=== PATIENT | female | born 1945 | race Caucasian/White ===

== ENCOUNTER 2017-05-14 14:12 | Outpatient (CLI) | payer MEDICARE, BC ==
--- NOTE | 2017-05-14 18:41 | MRI ---
MRI OF THE LEFT KNEE WITHOUT CONTRAST 05/14/17 INDICATION: Left knee pain. COMPARISON: Prior exam dated 06/12/16. FINDINGS: There is a nondepressed, nondisplaced comminuted fracture involving the anterior to mid aspect of the lateral tibial plateau. The lateral meniscus is intact. The diffuse chondrosis involving the medial femorotibial joint compartment is similar. There is blunting of the body and posterior corner of the medial meniscus likely related to partial meniscectomy. There is some residual areas of increased T2 signal seen involving the undersurface of the truncated body and posterior horn of the medial menisc us which may be related to postoperative scar versus recurrent tear. The ACL, PCL, LCLC and extensor mechanism is intact. There is a moderate sized Potter's cyst. A small amount of fluid overlying the madrigal perficial aspect of the medial gastrocnemius which may reflect sequela of partial rupture. IMPRESSION: 1. Nondepressed, nondisplaced lateral tibial plateau fracture. 2. Interval partial medial meniscectomy with some residual linear regions of increased T2 signal within the meniscus which may reflect scar versus recurrent tear. 3. 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 POS: [facility]
== END 2017-05-14 14:13 | disposition home or self-care (01) ==
LOC: SCSMRI 14:12
PROVIDERS: ATTEND Orthopaedic Surgery
DX: M25.562 Pain in left knee (principal); S82.145A Nondisplaced bicondylar fracture of left tibia, initial encounter for closed fracture; M17.12 Unilateral primary osteoarthritis, left knee

== ENCOUNTER 2019-03-16 12:22 | Outpatient (CLI) | payer MEDICARE, BC ==
[2019-03-16] MEDS ORDERED: ISOVUE-370 76%-LOCM 1 ML ONE (12:34)
--- NOTE | 2019-03-16 13:39 | CT ---
CT NECK SOFT TISSUES, WITH CONTRAST: CLINICAL INDICATION: Right neck swelling. COMPARISON: No prior comparison imaging. FINDINGS: Aerodigestive tract:Mild prominence of the lingual tonsil, greater on the right. No significant mass effect upon the aerodigestive tract. Parotid gland: No intrinsic mass, or inflammation. Submandibular glands:No intrinsic mass, or inflammation. Soft tissue mass:No focal mass is seen at the site of palpable concern of the right neck. There is an underlying traversing cutaneous vein and minimal surrounding edema of the subcutaneous fat. Lymph nodes: No pathologic enlargement of regional lymph nodes. Thyroid gland:Unremarkable. Incidental findings:Linear density of the left upper lung zone which may relate to subsegmental atele ctasis. There is pulmonary emphysema. IMPRESSION: 1. Minimal edema at the subcutaneous tissues of the site of concern without evidence of a focal mass. No drainable fluid collection. 2. Mild prominence of lingual tonsil, greater to the right of midline. Correlate clinically. Transcribed Date/Time: 03/16/2019 2:15 PM
== END 2019-03-16 12:23 | disposition home or self-care (01) ==
LOC: BICCT 12:22
PROVIDERS: ATTEND Surgery
DX: R22.2 Localized swelling, mass and lump, trunk (principal); R60.0 Localized edema
CPT/HCPCS: 36415; 70491; 80053; 80061; 82306; 85025; Q9966

== ENCOUNTER 2020-08-16 10:04 | Outpatient (CLI) | payer MEDICARE, BC ==
--- NOTE | 2020-08-16 10:27 | RAD ---
PA AND LATERAL CHEST: HISTORY: Dyspnea. COMPARISON: 04/29/2020 exam. FINDINGS: Heart size is within normal limits. Postop sternotomy changes are seen. The lungs appear clear of a ny infiltrative process. Arthritic changes of the spine are noted. IMPRESSION: No active intrathoracic disease. Stable chest. POS: [facility]
== END 2020-08-16 10:05 | disposition home or self-care (01) ==
LOC: BICRAD 10:04
PROVIDERS: ATTEND Internal Medicine Critical Care Medicine
DX: R06.00 Dyspnea, unspecified (principal)
CPT/HCPCS: 71046

== ENCOUNTER 2021-01-24 15:07 | Outpatient (CLI) | payer MEDICARE, BC | END 2021-01-24 15:08 | disposition home or self-care (01) | LOC: BICRAD 15:07 | PROVIDERS: ATTEND Physician Assistant | DX: M54.5 Low back pain (principal); M54.6 Pain in thoracic spine; M46.1 Sacroiliitis, not elsewhere classified; M47.814 Spondylosis without myelopathy or radiculopathy, thoracic region; M47.816 Spondylosis without myelopathy or radiculopathy, lumbar region | CPT/HCPCS: 72072; 72100 ==

== ENCOUNTER 2021-01-25 10:43 | Outpatient (CLI) | payer MEDICARE, BC | END 2021-01-25 10:44 | disposition home or self-care (01) | LOC: BICMRI 10:43 | PROVIDERS: ATTEND Internal Medicine Rheumatology | DX: M46.1 Sacroiliitis, not elsewhere classified (principal); M54.5 Low back pain; M47.818 Spondylosis without myelopathy or radiculopathy, sacral and sacrococcygeal region; M47.816 Spondylosis without myelopathy or radiculopathy, lumbar region; M71.38 Other bursal cyst, other site; Z87.81 Personal history of (healed) traumatic fracture | CPT/HCPCS: 72195 ==

== ENCOUNTER 2022-12-21 16:58 | Outpatient (CLI) | payer MEDICARE, BC | END 2022-12-21 16:59 | disposition home or self-care (01) | LOC: SCSRAD 16:58 | DX: M79.672 Pain in left foot (principal) ==

== ENCOUNTER 2023-01-14 08:01 | Outpatient (CLI) | payer MEDICARE, BC | END 2023-01-14 08:02 | disposition home or self-care (01) | LOC: SCSMRI 08:01 | PROVIDERS: ATTEND Neurological Surgery | DX: M79.672 Pain in left foot (principal); M43.16 Spondylolisthesis, lumbar region; R29.818 Other symptoms and signs involving the nervous system; M21.072 Valgus deformity, not elsewhere classified, left ankle; M25.872 Other specified joint disorders, left ankle and foot ==

== ENCOUNTER 2023-07-10 14:50 | Outpatient (CLI) | payer MEDICARE, BC | END 2023-07-10 14:51 | disposition home or self-care (01) | LOC: SCSMRI 14:50 | PROVIDERS: ATTEND Internal Medicine | DX: R51.9 Headache, unspecified (principal); I67.89 Other cerebrovascular disease; R90.82 White matter disease, unspecified | CPT/HCPCS: 70551 ==

== ENCOUNTER 2023-08-27 | Inpatient (IN) | payer MEDICARE, BC | END 2023-08-31 14:53 | disposition home or self-care (01) | DRG 982 | PROVIDERS: ADMIT Internal Medicine | PROC: 0LB70ZZ Excision of Right Hand Tendon, Open Approach (ICD-10-PCS; principal; 2023-08-28) | PROC: 3E033XZ Introduction of Vasopressor into Peripheral Vein, Percutaneous Approach (ICD-10-PCS; 2023-08-31) | DX: L03.113 Cellulitis of right upper limb (principal); K57.92 Diverticulitis of intestine, part unspecified, without perforation or abscess without bleeding; N17.9 Acute kidney failure, unspecified; N18.30 Chronic kidney disease, stage 3 unspecified; I25.10 Atherosclerotic heart disease of native coronary artery without angina pectoris; I12.9 Hypertensive chronic kidney disease with stage 1 through stage 4 chronic kidney disease, or unspecified chronic kidney disease; J44.9 Chronic obstructive pulmonary disease, unspecified; E78.5 Hyperlipidemia, unspecified; W55.01XA Bitten by cat, initial encounter; Z88.2 Allergy status to sulfonamides; Z88.5 Allergy status to narcotic agent; Z95.1 Presence of aortocoronary bypass graft; Z90.710 Acquired absence of both cervix and uterus; Z79.899 Other long term (current) drug therapy ==

== ENCOUNTER 2024-08-10 14:00 | Outpatient (CLI) | payer MEDICARE, BC | END 2024-08-10 14:01 | disposition home or self-care (01) | LOC: BICCT 14:00 | PROVIDERS: ATTEND Neurological Surgery | DX: Z47.89 Encounter for other orthopedic aftercare (principal); M48.061 Spinal stenosis, lumbar region without neurogenic claudication; M48.07 Spinal stenosis, lumbosacral region; Z98.1 Arthrodesis status | CPT/HCPCS: 72131 ==

== ENCOUNTER 2024-08-10 14:17 | Outpatient (CLI) | payer MEDICARE, BC | END 2024-08-10 14:18 | disposition home or self-care (01) | LOC: BICMAMMO 14:17 | PROVIDERS: ATTEND Internal Medicine | DX: Z12.31 Encounter for screening mammogram for malignant neoplasm of breast (principal) | CPT/HCPCS: 77063; 77067 ==

== ENCOUNTER 2025-04-10 14:14 | Emergency (ER) | payer MEDICARE, BC | END 2025-04-10 15:24 | disposition home or self-care (01) | LOC: ERS 14:14 | DX: L03.115 Cellulitis of right lower limb (principal); I12.9 Hypertensive chronic kidney disease with stage 1 through stage 4 chronic kidney disease, or unspecified chronic kidney disease; N18.9 Chronic kidney disease, unspecified; I48.91 Unspecified atrial fibrillation; J44.9 Chronic obstructive pulmonary disease, unspecified; Z55.6 Problems related to health literacy | CPT/HCPCS: 99282 ==